=== PATIENT | male | born 1975 | race African-American/Black ===

== ENCOUNTER 2017-11-17 11:02 | Emergency (ER) | payer MEDICAID ==
[~2017-11-17] VITALS: Ht 182.9 cm; Wt 102.1 kg
--- NOTE | 2017-11-17 11:14 | NUR ---
PT AMBULATES TO BED 9
[2017-11-17 11:23] VITALS: BP 120/74
--- NOTE | 2017-11-17 11:24 | NUR ---
PATIENT PRESENTS TO ED WITH PENILE DC . PT STATES . DENIES N/V/D; SKIN IS PINK/WARM/DRY; AAOX4 WITH EVEN AND STEADY GAIT; LUNGS CLEAR BL; HR EVEN AND REGULAR; PT DENIES ANY FEVER, CP, SOB, OR COUGH AT THIS TIME; PATIENT STATES PAIN OF 0/10 AT THIS TIME; VSS; PATIENT POSITIONED FOR COMFORT; HOB ELEVATED; BEDRAILS UP X2; BED DOWN. ER MD MADE AWARE OF PT STATUS.
[2017-11-17] MEDS ORDERED: LEVOFLOXACIN 500 MG TAB PO ONE (11:40)
[2017-11-17] MEDS ORDERED: cefTRIAXone 1,000 MG in LIDOCAINE 1% ***ER ONLY *** 2.1 ML IM ONE (11:40)
[2017-11-17] MEDS ORDERED: LIDOCAINE MPF 1% - 5 mL VIAL 5 ML ONE (12:04)
[2017-11-17] MEDS ORDERED: cefTRIAXone 1,000 MG VIAL ONE (12:04)
--- NOTE | 2017-11-17 12:28 | NUR ---
CULTURE SWAB COLLECTED AND HANDED TO LAB
[2017-11-17 12:29] VITALS: BP 133/87
--- NOTE | 2017-11-17 12:29 | NUR ---
Patient discharged with v/s stable. Written and verbal after care instructions given and explained. Patient alert, oriented and verbalized understanding of instructions. Ambulatory with steady gait. All questions addressed prior to discharge. ID band removed. Patient advised to follow up with PMD. Rx of DOXYCYCLIN/NORVASC/HCTZ given. Patient educated on indication of medication including possible reaction and side effects. Opportunity to ask questions provided and answered.
== END 2017-11-17 12:29 | disposition home or self-care (01) ==
LOC: MED 11:02
DX: A56.01 Chlamydial cystitis and urethritis (principal); I10 Essential (primary) hypertension; Z76.0 Encounter for issue of repeat prescription; E78.5 Hyperlipidemia, unspecified
CPT/HCPCS: 36415; 96372; 99283; J0696; J2001

== ENCOUNTER 2018-09-06 01:04 | Emergency (ER) | payer MEDICAID ==
[~2018-09-06] VITALS: Ht 182.9 cm; Wt 102.1 kg
[2018-09-06 01:10] VITALS: BP 154/106
--- NOTE | 2018-09-06 01:16 | NUR ---
PT AMBULATED BACK TO [facility]OB[facility]
--- NOTE | 2018-09-06 02:00 | NUR ---
PT WAS TAKEN TO XRAY BY WHEEL CHAIR
--- NOTE | 2018-09-06 02:01 | NUR ---
PT TO ED WITH C/O EPIGASTRIC PAIN AND CONSTIPATION X 2 DAYS. PER PT NO BM X 3 DAYS. PT DENIES N/V. ABD IS SOFT NON TENDER. REPORTS PAIN UPON PALPATION TO EPIGASTRIC REGION. BOWEL SOUNDS HYPOACTIVE X 4 QUADRANTS. PT PLACED INTO BED, PENDING MD SELBY.
--- NOTE | 2018-09-06 03:00 | NUR ---
US AT BEDSIDE.
--- NOTE | 2018-09-06 03:51 | NUR ---
Patient discharged with v/s stable. Written and verbal after care instructions given and explained. Patient alert, oriented and verbalized understanding of instructions. Ambulatory with steady gait. All questions addressed prior to discharge. ID band removed. Patient advised to follow up with PMD. Rx of REGINA ODOM given. Patient educated on indication of medication including possible reaction and side effects. Opportunity to ask questions provided and answered.
[2018-09-06 03:52] VITALS: BP 148/93
== END 2018-09-06 03:52 | disposition home or self-care (01) ==
LOC: MED 01:04
DX: K59.00 Constipation, unspecified (principal); I10 Essential (primary) hypertension
CPT/HCPCS: 74021; 76705; 99284; Q0092

== ENCOUNTER 2019-08-27 00:25 | Emergency (ER) | payer MEDICAID, SELFPAY ==
[~2019-08-27] VITALS: Ht 182.9 cm; Wt 102.5 kg
[2019-08-27 00:34] VITALS: BP 173/103
[2019-08-27] MEDS ORDERED: KETOROLAC 15 MG/ML VIAL IVP ONE (00:45)
[2019-08-27] MEDS ORDERED: hydrALAZINE 20 MG/ML VIAL IVP ONE (00:45)
--- NOTE | 2019-08-27 00:50 | NUR ---
PT 44 Y/O MALE BIB SELF FOR C/O COUGH AND SOB X 2 WEEKS. PT STATES 6/10 STERNAL CHEST PAIN THAT IS NON-RADIATING THIGHTNESS THAT IS PRECIPITATED WHEN COUGH OR FEELING SOB. PT DENIES N/V/D. RESPIRATIONS ARE EVEN AND UNLABORED AT THIS TIME. COUGH NOTED. LUNG SOUNDS CLEAR A/P BILAT. O2SAT 98% ON RA. 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 BED LOCKED AND IN LOWEST POSTION. MEDHX: HTN, HEART MURMUR. ALLERGIES: NKA
--- NOTE | 2019-08-27 01:01 | NUR ---
XRAY AT BEDSIDE.
--- NOTE | 2019-08-27 01:15 | NUR ---
IV PLACED IN R HAND 20 G. IV SITE PATENT WITH NO SWELLING OR C/O PAIN AT THIS TIME.
--- NOTE | 2019-08-27 01:18 | NUR ---
LABS DRAWN AND GIVEN TO [employer].
--- NOTE | 2019-08-27 01:20 | NUR ---
COVID AND FLU SWAB COLLECTED AND GIVEN TO INSTRUCTIONAL COORDINATOR.
[2019-08-27 01:26] LABS: BASOPHILS % (AUTO) 0.6 % (0.0-2.0); EOSINOPHILS # (AUTO) 0.2 K/uL (0-0.4); EOSINOPHILS % (AUTO) 2.4 % (0.0-4.0); HEMATOCRIT 42.6 % (36-52); HEMOGLOBIN 14.4 g/dL (12.0-18.0); LYMPHOCYTES # (AUTO) 1.7 K/uL (2.0-11.5); LYMPHOCYTES % (AUTO) 23.8 % (20.5-51.1); MEAN CORPUSCULAR HEMOGLOBIN 30 pg (27-31); MEAN CORPUSCULAR HGB CONC 34 g/dL (33-37); MEAN CORPUSCULAR VOLUME 89.5 fL (80-94); MONOCYTES # (AUTO) 0.6 K/uL (0.8-1.0); MONOCYTES % (AUTO) 8.2 % (1.7-9.3); NEUTROPHILS # (AUTO) 4.8 K/uL (1.8-7.7); PLATELET COUNT (AUTO) 317 K/uL (140-450); RED BLOOD CELL COUNT(AUTO) 4.76 MIL/uL (4.20-6.10); RED CELL DISTRIBUTION WIDTH 12.7 % (11.6-13.7); WHITE BLOOD COUNT (AUTO) 7.3 K/uL (4.8-10.8)
--- NOTE | 2019-08-27 01:32 | NUR ---
EKG DONE AT BEDSIDE.
--- NOTE | 2019-08-27 01:35 | NUR ---
HYRALAZINE 10MG AND TORADOL 15 MG GIVEN IVP IN R HAND. IV SITE PATENT WITH NO C/O PAIN AND SWELLING. CURRENT BP: 168/101. PT HAS C/O 5/10 STERNAL CHEST PAIN, NON RADIATING. 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 BED LOCKED AND IN LOWEST POSITION.
[2019-08-27 01:40] LABS: ALBUMIN 3.8 g/dL (3.4-5.0); CARBON DIOXIDE 27.3 mmol/L (21-32); TOTAL BILIRUBIN 0.7 mg/dL (0.0-1.0)
[2019-08-27 01:48] LABS: ANION GAP 11.4 (8-16); POTASSIUM 3.7 mmol/L (3.5-5.1)
--- NOTE | 2019-08-27 01:58 | NUR ---
BP RECHECKED: 151/98.
--- NOTE | 2019-08-27 02:12 | NUR ---
Patient discharged with v/s stable. Written and verbal after care instructions given and explained. Patient alert, oriented and verbalized understanding of instructions. Ambulatory with steady gait. All questions addressed prior to discharge. ID band removed. Patient advised to follow up with PMD. Rx of HYDROCHLOROTHIAZIDE given. Patient educated on indication of medication including possible reaction and side effects. Opportunity to ask questions provided and answered.
[2019-08-27 02:18] VITALS: BP 151/98
--- NOTE | 2019-09-16 13:19 | NUR ---
UNRESULTED COVIG-19 TEST TAKEN 08/27/19 FOR SOB SEEN BY I SPOKE WITH PT IF SYMPTOMATIC MAY RETURN FOR REPEAT TEST OR F/U WITH PMD OR TESTING FACILITY IN [facility] SITE. NOTIFIED
== END 2019-08-27 02:12 | disposition home or self-care (01) ==
LOC: MED 00:25 → EEVIPCON 00:25 → MED 02:12
DX: I10 Essential (primary) hypertension (principal); F12.90 Cannabis use, unspecified, uncomplicated; R51 Headache; R07.9 Chest pain, unspecified; Z20.828 Contact with and (suspected) exposure to other viral communicable diseases
CPT/HCPCS: 36415; 71045; 80053; 83880; 84484; 85025; 87804; 93005; 96374; 96375; 99285; J0360; J1885; Q0092